=== PATIENT | male | born 1975 | race Caucasian/White ===

== ENCOUNTER 2024-01-04 14:32 | Emergency (ER) | payer BC, SELFPAY ==
[2024-01-04 14:38] VITALS: BP 124/86
[2024-01-04 14:52] LABS: % Basophils 0.3 % (0-2); % Eosinophils 0.9 % (0-6); % Immature Granulocytes 0.3 % (0-0.5); % Lymphocytes 20.2 % (20.5-51.1); % Monocytes 4.4 % (1.7-9.3); % Neutrophils 73.9 % (42.2-75.2); Absolute Eosinophils 0.1 10^3/uL (0-0.7); Absolute Monocytes 0.4 10^3/uL (0.1-0.6); Absolute Neutrophils 7.1 10^3/uL (1.4-6.5); Hematocrit 42.7 % (39.0-52.0); Hemoglobin 14.9 g/dL (13.0-18.0); Mean Corp Hgb Conc. 34.9 g/dL (33.0-37.0); Mean Corpuscular Hgb 31.1 pg (27.0-31.0); Mean Corpuscular Volume 89.1 fL (80.0-94.0); Mean Platelet Volume 9.5 fL (7.4-10.4); Nucleated Red Blood Cells % 0 % (-); Platelet Count 223 10^3/uL (130-400); Red Blood Cell Count 4.79 10^6/uL (4.70-6.10); White Blood Cell Count 9.6 10^3/uL (4.8-10.8)
[2024-01-04 15:07] LABS: ALT (SGPT) 50 U/L (0-50); AST (SGOT) 42 U/L (17-59); Albumin 5.1 g/dl (3.5-5.0); Alkaline Phosphatase 61 U/L (38-126); Blood Urea Nitrogen 20 mg/dl (9-20); Calcium 9.9 mg/dl (8.4-10.2); Carbon Dioxide 26 mmol/L (22-30); Chloride 102 mmol/L (98-107); Glucose 104 mg/dl (70-99); Potassium 4.4 mmol/L (3.5-5.1); Sodium 141 mmol/L (135-145); Total Protein 7.3 g/dl (6.3-8.2); eGFR > 60.00
[2024-01-04 15:15] LABS: Troponin I < 0.012 ng/ml
[2024-01-04 15:55] VITALS: BP 121/76
[2024-01-04 16:00] VITALS: BP 148/91
--- NOTE | 2024-01-04 16:35 | ED.GENMED ---
History of Present Illness
General
Chief Complaint: Cardiac Symptoms
Time Seen by Provider: 01/04/24 15:52
History of Present Illness
History of Present Illness:
48-year-old male with history of hyperlipidemia and known coronary artery disease by calcium CT score presents to the emergency department for evaluation of left-sided chest discomfort radiating to the left neck developing during a bike workout
earlier today. The symptoms began approximately 2-1/2 to 3 hours prior to arrival, states he has never felt anything like this in the past. The episode lasted approximately 30 to 60 minutes and gradually resolved as he returned to rest.He is
currently asymptomatic. He notes that he had a coronary calcium CT done 2 to 3 years ago that showed a score of 350 which indicates significant coronary disease. He has never had angina in the past. Denies fevers, shortness of breath, or leg
swelling
Review of Systems
Review of Systems
Allergies reviewed?: Yes
All Other Systems: ROS reviewed and negative except as documented in HPI and ROS
Phy Exam
Physical Exam
Physical Exam:
GEN: Well appearing, NAD, WDWN
HEENT: Oral mucosa moist, no scleral icterus
Cardiac: Regular rate and rhythm, no murmurs
Lung: No respiratory distress, no tachypnea
MSK: No gross deformity or injuries
Skin: Good color, no pallor or jaundice, no rashes
Neuro: AO x3, moves all extremities freely
Psych: Calm, cooperative
Course
Orders/Labs/Results
Orders:
Orders
01/04/24 14:33
ECG [Electrocardiogram (*1)] Urgent
Reason for Study: Chest Pain
EKG- Treatment ONCE
01/04/24 14:45
Complete Blood Count/With Diff Urgent
Comprehensive Metabolic Panel Urgent
Troponin I Urgent
01/04/24 16:47
Troponin I Routine
Abnormal Lab Results
01/04/24
14:45
MCH 31.1 H pg
(27.0-31.0)
Absolute Neuts (auto) 7.1 H 10^3/uL
(1.4-6.5)
Lymphocytes % 20.2 L %
(20.5-51.1)
Glucose 104 H mg/dl
(70-99)
Albumin 5.1 H g/dl
(3.5-5.0)
01/04/24 14:45
01/04/24 14:45
Vital Signs
Initial and Last Documented VS:
Initial Vital Signs
Temp Pulse Resp BP Pulse Ox
98.4 F 77 18 124/86 99
01/04/24 14:38 01/04/24 14:38 01/04/24 14:38 01/04/24 14:38 01/04/24 14:38
Last Documented Vital Signs
Temp Pulse Resp BP Pulse Ox
98.4 F 63 14 116/78 98
01/04/24 14:38 01/04/24 17:15 01/04/24 17:15 01/04/24 17:00 01/04/24 17:15
MDM/Problems Addressed
MDM/Problems Addressed:
Patient had an exertional chest pain episode that resolved spontaneously. His initial EKG and cardiac workup was reassuring. After my exam I educated the patient that we would require repeat delta troponin however the patient is not willing to
wait in the ER for a 3-hour repeat, I discussed the risk with him given his known coronary disease on calcium CT and concerning story with exertional chest pain, regardless he is unwilling to wait for a 3-hour repeat. I relented and agreed to
obtain a 2-hour repeat troponin which was ultimately negative. I did reassure the patient that while he is asymptomatic this is likely indicative of stable angina however cannot completely rule out presence of mild [place] given that he was not willing
to stay any further for continued diagnostics. Will refer him to his cardiology office for close follow-up through the chest pain hotline as he will likely require outpatient stress testing
Comment
Comment:
Initial EKG independently interpreted by me shows normal sinus rhythm at a rate of [address] changes concerning for ischemia, repeat EKG independently interpreted by me shows normal sinus rhythm at a rate of 65 with no ischemic changes
*Critical Care Note
Total Time (30-74mins, 75-104mins- exclusive of procedures): Not Applicable
ED Attending Note
-
Portions of this chart may have been created with voice recognition software.� Occasional wrong word or��sound alike� substitutions may have occurred due to the inherent limitations of voice recognition software.
Discharge Plan
Departure
Patient Disposition: Home (Routine Discharge)
Date of Disposition: 01/04/24
Time of Disposition: 17:24
Patient with high blood pressure during this ER visit?: No
Discharge Problem:
Chest pain, exertional
Instructions: Chest Pain CBC Follow Up
Referrals:
Donn Malik MD [Family Provider] -
Activity Restrictions/Additional Instructions:
Return if you develop any similar symptoms while at rest, or if exertional symptoms do not resolve with rest
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
Interventions
Interventions:
*Risk Screen - Suicide Last Done: 01/04/24 14:38
*General Assessment Last Done: 01/04/24 14:38
*Neglect/Abuse Screening Last Done: 01/04/24 14:38
*ED COVID-19 Vaccine History Last Done: 01/04/24 17:00
*Nursing Disposition Last Done: 01/04/24 17:40
ED- Pulmonary Assessment Last Done: 01/04/24 17:00
ED- Cardiac Assessment Last Done: 01/04/24 17:00
Discharge Date and Time
Discharge Date/Time: 01/04/24 17:40
Print Language: FRENCH
[2024-01-04 17:00] VITALS: BP 116/78
[2024-01-04 17:23] LABS: Troponin I < 0.012 ng/ml
== END 2024-01-04 17:40 | disposition home or self-care (01) ==
LOC: EMR 14:32
PROVIDERS: Physician Assistant; Student in an Organized Health Care Education/Training Program; EMERGENCY PHYSICIAN Emergency Medicine; FAMILY PHYSICIAN Family Medicine
DX: R07.89 Other chest pain (principal); M54.2 Cervicalgia; E78.5 Hyperlipidemia, unspecified; I25.10 Atherosclerotic heart disease of native coronary artery without angina pectoris
CPT/HCPCS: 99284; 80053; 84484; 85025; 93005

== ENCOUNTER → 2024-01-24 11:31 | Outpatient (REF) | payer BC, SELFPAY | LOC: DHCBC/DCA 11:31 | PROVIDERS: ATTENDING PHYSICIAN Nurse Practitioner; FAMILY PHYSICIAN Family Medicine | DX: R07.89 Other chest pain (principal); I25.10 Atherosclerotic heart disease of native coronary artery without angina pectoris | CPT/HCPCS: 78452; 93017; A9500 ==

== ENCOUNTER → 2024-02-06 11:08 | Outpatient (REF) | payer BC, SELFPAY | LOC: HWRCS 11:08 | PROVIDERS: ATTENDING PHYSICIAN Internal Medicine Cardiovascular Disease; FAMILY PHYSICIAN Family Medicine | DX: I34.0 Nonrheumatic mitral (valve) insufficiency (principal) | CPT/HCPCS: 93306 ==

== ENCOUNTER 2024-02-21 06:22 | Day surgery (SDC) | payer BC, SELFPAY | END 2024-02-21 08:45 | disposition home or self-care (01) | LOC: GI 06:22 | PROVIDERS: ATTENDING PHYSICIAN Internal Medicine | PROC: 0DJD8ZZ Inspection of Lower Intestinal Tract, Via Natural or Artificial Opening Endoscopic (ICD-10-PCS; 2024-02-21) | DX: Z12.11 Encounter for screening for malignant neoplasm of colon (principal); K57.30 Diverticulosis of large intestine without perforation or abscess without bleeding; K64.8 Other hemorrhoids | CPT/HCPCS: G0121 ==

== ENCOUNTER → 2024-02-22 07:37 | Outpatient (REF) | payer BC, SELFPAY | LOC: MRI 07:37 | PROVIDERS: ATTENDING PHYSICIAN Internal Medicine Cardiovascular Disease; FAMILY PHYSICIAN Nurse Practitioner Family | DX: I42.8 Other cardiomyopathies (principal) | CPT/HCPCS: 75561; 75565; A9585 ==

== ENCOUNTER → 2024-05-09 09:09 | Outpatient (REF) | payer BC, SELFPAY | LOC: HWRCS 09:09 | PROVIDERS: ATTENDING PHYSICIAN Internal Medicine Cardiovascular Disease; FAMILY PHYSICIAN Nurse Practitioner Family | DX: I42.9 Cardiomyopathy, unspecified (principal) | CPT/HCPCS: 93306 ==

== ENCOUNTER 2024-06-24 09:05 | Emergency (ER) | payer BC, SELFPAY ==
[2024-06-24 09:07] VITALS: BP 114/87
[2024-06-24 09:33] VITALS: BP 131/85
[2024-06-24 10:00] VITALS: BP 134/90
[2024-06-24 10:21] LABS: % Basophils 0.5 % (0-2); % Eosinophils 2.9 % (0-6); % Immature Granulocytes 0.3 % (0-0.5); % Lymphocytes 35.5 % (20.5-51.1); % Monocytes 6.5 % (1.7-9.3); % Neutrophils 54.3 % (42.2-75.2); Absolute Eosinophils 0.2 10^3/uL (0-0.7); Absolute Lymphocytes 2.2 10^3/uL (1.2-3.4); Absolute Monocytes 0.4 10^3/uL (0.1-0.6); Absolute Neutrophils 3.4 10^3/uL (1.4-6.5); Hematocrit 45.5 % (39.0-52.0); Mean Corp Hgb Conc. 35.2 g/dL (33.0-37.0); Mean Corpuscular Hgb 31.3 pg (27.0-31.0); Mean Platelet Volume 9.6 fL (7.4-10.4); Nucleated Red Blood Cells % 0 % (-); Platelet Count 224 10^3/uL (130-400); Red Blood Cell Count 5.11 10^6/uL (4.70-6.10); Red Cell Dist. Width 12.4 % (11.5-14.5); White Blood Cell Count 6.3 10^3/uL (4.8-10.8)
--- NOTE | 2024-06-24 10:24 | ED.GENMED ---
History of Present Illness
General
Chief Complaint: Heart Rate Problem
Time Seen by Provider: 06/24/24 09:37
History of Present Illness
History of Present Illness:
49-year-old male with history of reduced ejection fraction on Farxide presenting to the emergency department for irregular heartbeat. Patient reports last evening he noticed on his watch that his heart rate was going up and down. He checked the
rhythm on his watch, read as A-fib. Symptoms persisted throughout the night and into the morning so he came to the hospital. Denies any significant palpitations. Denies chest pain or difficulty breathing. Denies ever having this in the past.
Does note that his mother had A-fib. Denies abdominal pain or GI symptoms. Denies recent fever or illness. Denies additional acute medical complaints
Phy Exam
Physical Exam
Physical Exam:
General: Well-appearing, no clinical signs of dehydration, nontoxic and in no acute distress
HEENT: protecting airway
Neck: appears supple
CV: Normal heart rate, regular rhythm, no evidence of cyanosis
Resp: No accessory muscle use, no increased work of breathing, lungs clear to auscultation bilaterally
Abd: Soft and non-distended, no tenderness to palpation
Extremities: No deformities, no swelling
Neuro: alert, no focal neurologic deficit
: deferred
Rectal: deferred
Psych: Normal affect
Skin: Intact
Scores
[id number] Score for Afib Stroke Risk
Age in Years (65=0, 65-74=1, >/=75=2): <65
Sex (Female=+1): Male
Congestive Heart Failure History (Yes=+1): Yes
Hypertension History (Yes=+1): No
Stroke/TIA/Thromboembolism History (Yes=+2): No
Vascular Disease History (Yes=+1): No
Diabetes Mellitus (Yes=+1): No
Score: 1
Anticoagulation Recommendations: Consider anticoagulation (as validated in nonvalvular fib)
Course
Orders/Labs/Results
Orders:
Orders
06/24/24 09:05
EKG [Electrocardiogram (*1)] Urgent
Reason for Study: Palpitations
EKG- Treatment ONCE
06/24/24 09:54
ECG [Electrocardiogram (*1)] Urgent
Reason for Study: Palpitations
EKG- Treatment ONCE
06/24/24 10:10
Complete Blood Count/With Diff Urgent
Comprehensive Metabolic Panel Urgent
Magnesium Urgent
Abnormal Lab Results
06/24/24
10:10
MCH 31.3 H pg
(27.0-31.0)
BUN 23 H mg/dl
(9-20)
Glucose 108 H mg/dl
(70-99)
06/24/24 10:10
06/24/24 10:10
Vital Signs
Initial and Last Documented VS:
Initial Vital Signs
Temp Pulse Resp BP Pulse Ox
97.8 F 94 18 114/87 100
06/24/24 09:07 06/24/24 09:07 06/24/24 09:07 06/24/24 09:07 06/24/24 09:07
Last Documented Vital Signs
Temp Pulse Resp BP Pulse Ox
97.8 F 72 11 134/90 99
06/24/24 09:07 06/24/24 10:00 06/24/24 10:00 06/24/24 10:00 06/24/24 10:00
MDM/Problems Addressed
MDM/Problems Addressed:
49-year-old male presenting to the emergency department for concern of irregular heartbeat. Vital signs on arrival are normal.
On exam patient is well-appearing, no acute distress or discomfort. Initial EKG on arrival is atrial fibrillation, rate controlled. However, upon walking into the room, patient is now in sinus rhythm. Spontaneous conversion. EKG repeated,
confirms sinus rhythm. No indication for emergent treatment at this time. Will screen with laboratory analysis.
11:10 - Labs are unremarkable. [id number] score is 1. Echo reviewed from May 2024, without any concern for underlying heart failure. Feel stable for discharge. Did discuss with cardiology, recommending 30 days of anticoagulation. Will
prescribe. Patient declining a dose of anticoagulation in the ER. Return precautions discussed verbalized understanding
*EKG
Interpreted by ED Provider?: Yes
EKG Intrepretation Date: 06/24/24
EKG Intrepretation Time: 10:32
Interpretation: normal
Comparison EKG: changes noted
Heart Rate: 73
Rate: normal
Rhythm: a-fib
[place]: normal axis
QRS Pattern: normal QRS
Ischemia: no ischemia
*Critical Care Note
Total Time (30-74mins, 75-104mins- exclusive of procedures): Not Applicable
ED Attending Note
-
Portions of this chart may have been created with voice recognition software.� Occasional wrong word or��sound alike� substitutions may have occurred due to the inherent limitations of voice recognition software.
Discharge Plan
Departure
Patient with high blood pressure during this ER visit?: No
Condition: Good
Discharge Problem:
Paroxysmal A-fib
Instructions: Atrial Fibrillation (DC)
Referrals:
Zuri Keith CRNP [Family Provider] -
Sagrario Longoria MD [Active] -
Activity Restrictions/Additional Instructions:
You were seen in the emergency department for concern of atrial fibrillation
You were found to have sinus rhythm in the ER and normal blood work. We recommend that you follow-up with a consulting manager for additional workup
Please follow-up closely with your primary care physician.
Return to the emergency department for any worsening of your symptoms, or any development of chest pain, difficulty breathing, abdominal pain with persistent vomiting and inability to tolerate food or liquid by mouth (concern for dehydration),
weakness, headache or confusion, fever greater than 100.4, or any additional symptoms that are concerning to you.
Thank you for choosing [facility].
Interventions
Interventions:
*Risk Screen - Suicide Last Done: 06/24/24 09:07
*General Assessment Last Done: 06/24/24 09:07
*Neglect/Abuse Screening Last Done: 06/24/24 09:07
ED- Cardiac Assessment Last Done: 06/24/24 10:07
ED- Pulmonary Assessment Last Done: 06/24/24 10:07
Discharge Date and Time
Print Language: [id number]
[2024-06-24 10:32] LABS: ALT (SGPT) 41 U/L (0-50); AST (SGOT) 37 U/L (17-59); Albumin 4.4 g/dl (3.5-5.0); Alkaline Phosphatase 60 U/L (38-126); Blood Urea Nitrogen 23 mg/dl (9-20); Calcium 9.8 mg/dl (8.4-10.2); Carbon Dioxide 28 mmol/L (22-30); Chloride 104 mmol/L (98-107); Glucose 108 mg/dl (70-99); Magnesium 2.1 mg/dl (1.6-2.3); Potassium 5.1 mmol/L (3.5-5.1); Sodium 137 mmol/L (135-145); Total Bilirubin 0.8 mg/dl (0.2-1.3); Total Protein 6.9 g/dl (6.3-8.2); eGFR > 60.00
[2024-06-24 11:00] VITALS: BP 125/83
== END 2024-06-24 11:36 | disposition home or self-care (01) ==
LOC: EMR 09:05
PROVIDERS: EMERGENCY PHYSICIAN Student in an Organized Health Care Education/Training Program; FAMILY PHYSICIAN Nurse Practitioner Family
DX: I48.0 Paroxysmal atrial fibrillation (principal)
CPT/HCPCS: 99284; 80053; 83735; 85025; 93005